=== PATIENT | female | born 1940 | race Caucasian/White ===

== ENCOUNTER 2016-04-12 07:24 | Day surgery (SDC) | payer MEDICARE ==
[~2016-04-12] VITALS: Ht 162.6 cm; Wt 113.6 kg
[~2016-04-12 07:24] MED LIST: FURO20TA PO; HYDR-2768 PO; K-TA10TA5 PO; LEVO200T38 PO; LISI40TA PO; LOVA40TA PO; NOVO7030P2 SQ; PERC5TAB12 PO; TIMO0.5S4 EACH EYE; VITA200017 PO
[2016-04-12 07:47] VITALS: BP 142/73; PULSE 63; RESP 20; TEMP 98.1; O2SAT 94
[2016-04-12] MEDS ORDERED: SODIUM CHLOR 0.9% 1000 ML INJ 1,000 ML IV SCH (08:15)
[2016-04-12] MEDS ORDERED: WARF-18 PO (08:48)
[2016-04-12] MEDS ORDERED: NOVO7030P2 SQ (08:48)
[2016-04-12] MEDS ORDERED: ZYRT10CA PO (08:48)
[2016-04-12] MEDS ORDERED: LISI40TA PO (08:48)
[2016-04-12] MEDS ORDERED: VITA10002 PO (08:48)
[2016-04-12] MEDS ORDERED: TRAM50TA PO (08:48)
[2016-04-12] MEDS ORDERED: IMODTAB (08:48)
[2016-04-12] MEDS ORDERED: LOVA40TA PO (08:48)
[2016-04-12] MEDS ORDERED: FURO1TAB62 PO (08:48)
[2016-04-12] MEDS ORDERED: LEVO200T4 PO (08:48)
[2016-04-12] MEDS ORDERED: GLIM1TAB PO (08:48)
[2016-04-12] MEDS ORDERED: AMLO5TAB2 PO (08:48)
[2016-04-12] MEDS ORDERED: ERGO1CAP10 PO (08:48)
[2016-04-12 08:52] LABS: BASOPHIL % 0.5 % (0.0-2.0); EOSINOPHIL # 0.2 TH/MM3 (0-0.4); EOSINOPHIL % 2.4 % (0.0-4.0); HEMATOCRIT 39.3 % (35.0-46.0); LYMPH % 7.5 % (9.0-44.0); LYMPHOCYTE # 0.5 TH/MM3 (1.0-4.8); MEAN CELL VOLUME 93.5 FL (80.0-100.0); MEAN CORPUSCULAR HGB CONC 33.2 % (32.0-36.0); MONO % 8.4 % (0.0-8.0); NEUT % 81.2 % (16.0-70.0); PLATELET COUNT 61 TH/MM3 (150-450); RED BLOOD COUNT 4.21 MIL/MM3 (4.00-5.30); WHITE BLOOD COUNT 6.2 TH/MM3 (4.0-11.0)
[2016-04-12 08:55] LABS: HEMO FLAGS AUTO DIFF
[2016-04-12] MEDS ORDERED: LIDOCAINE 1%/EPINEPHrine 1:100,000 SOLN 20 ML VIAL ONE (09:28)
[2016-04-12 09:39] LABS: PLATELET ESTIMATE SMEAR LOW (NORMAL); PLATELET MORPHOLOGY NORMAL (NORMAL); SCAN/DIFF AUTO DIFF CONFIRMED
[2016-04-12] MEDS ORDERED: fentaNYL CITRATE 250 MCG/5 ML AMP ONE (10:10)
[2016-04-12] MEDS ORDERED: MIDAZOLAM HCL 5 MG/5 ML VIAL ONE (10:10)
[2016-04-12 11:00] VITALS: BP 123/66; PULSE 75; RESP 16; TEMP 96.9; O2SAT 93
[2016-04-12 11:15] VITALS: BP 118/41; PULSE 62; RESP 16
[2016-04-12 11:30] VITALS: BP 91/48; PULSE 63; RESP 16; O2SAT 95
[2016-04-12 11:49] LABS: BONE MARROW PROCESSING COMPLETE; IRON STAIN DONE; JENNER GIEMSA STAIN DONE
--- NOTE | 2016-04-12 12:21 | RADRPT ---
EXAM DATE/TIME: 04/12/2016 10:19 [facility] COMPARISON: No previous studies available for comparison. INDICATIONS : Thrombocytopenia. SEDATION TIME: 30 minutes BIOPSY SITE: Right iliac MEDICATION(S): 1.) 2 mg midazolam (Versed) IV 2.) 100 mcg fentanyl (Sublimaze) IV DEVICE(S): 1.) 11 gauge Bone marrow biopsy needle MEDICAL HISTORY : Thrombocytopenia, endometrial cancer SURGICAL HISTORY : None. ENCOUNTER: Initial ACUITY: 1 day PAIN SCORE: 0/10 LOCATION: Right pelvis A total of one core specimen(s) were obtained and sent to the laboratory for pathologic evaluation. PROCEDURE: 1. CT guided bone marrow biopsy. 2. Conscious sedation with continuous EKG and oximetry monitoring. Prior to the procedure informed consent was obtained. Any appropriate prior imaging studies were rev iewed. The site was prepped in a sterile fashion. Full sterile technique was used, including cap, mask, jyotsna rile gloves and gown and a large sterile sheet. Hand hygiene and 2% chlorhexidine and/or betadine/al cohol prep was utilized per protocol for cutaneous antisepsis. The skin and subcutaneous tissues wer e infiltrated with local anesthetic solution. With CT guidance the previously identified target was localized. Biopsy was performed using the presc ribed needle as above. Following biopsy marrow aspiration was performed with repeat puncture. Adequa te hemostasis was obtained with compression at the puncture site. Follow-up CT scan reveals no hemorrhage. Conscious sedation was performed with the prescribed dosages and duration as above. The patient margret ated the procedure well and there were no complications. EKG and oximetry remained stable throughout the procedure. The patient was sent to Radiology Outpatient Unit in stable condition. CONCLUSION: 1. Uncomplicated CT guided bone marrow aspirate. 2. Uncomplicated CT guided bone marrow biopsy. Jj Welsh MD FACR on April 12, 2016 at 12:19 Board Certified Radiologist. This report was verified electronically.
[2016-04-12 12:32] VITALS: BP 124/43; PULSE 63; RESP 18; O2SAT 95
[2016-04-12 13:00] VITALS: BP 130/58; PULSE 63; RESP 16; O2SAT 97
== END 2016-04-12 13:15 | disposition home or self-care (01) ==
LOC: HRAD 07:24 → HRIP 07:25 → EDSTATUS 08:00 → HRAD 13:15
PROVIDERS: ATTEND Internal Medicine
DX: D69.6 Thrombocytopenia, unspecified (principal); D72.810 Lymphocytopenia; C54.1 Malignant neoplasm of endometrium
CPT/HCPCS: 38221; 77012; 85025; 85097; 88305; 88311; 88313; 99152; 99153; C1830; G0364; J2250; J3010

== ENCOUNTER 2017-07-12 18:11 | Emergency (ER) | payer MEDICARE ==
[~2017-07-12 18:11] MED LIST changes: +AMLO5TAB2 PO; +ERGO1CAP10 PO; +FURO1TAB62 PO; +GLIM1TAB PO; +IMODTAB; +LEVO200T4 PO; +TRAM50TA PO; +VITA10002 PO; -VITA200017 PO; +WARF-18 PO; +ZYRT10CA PO
[2017-07-12 18:13] VITALS: BP 176/75; PULSE 85; RESP 18; TEMP 98.4; O2SAT 94
--- NOTE | 2017-07-12 18:39 | PD ---
HPI Chief Complaint: Fall Time Seen by Provider: 18:26 Travel History International Travel<30 days: No Contact w/Intl Traveler<30days: No Traveled to known affect area: No History of Present Illness HPI This patient complains of right arm pain. She tripped and fell 1 hour ago and landed on her right arm. She is midhumerus pain and right elbow pain. No presyncopal symptoms. She describes a mechanical fall. She did not have any head injury. No torso or leg pain. Symptom severity is moderate. It is worse with arm movement. No alleviating factors. PFSH Past Medical History Cancer: Yes (Ovarian) Cardiovascular Problems: No Diabetes: Yes Endocrine: Yes (DM, Thyroid) Genitourinary: Yes (stress incontinence) Hepatitis: No Hiatal Hernia: No Immune Disorder: No Musculoskeletal: No Neurologic: No Psychiatric: No Reproductive: No Respiratory: No Thyroid Disease: Yes Past Surgical History Abdominal Surgery: Yes (Hysterectomy, 3 C-sections, tubaligation) AICD: No Cardiac Surgery: No Ear Surgery: No Endocrine Surgery: No Eye Surgery: Yes (L catarac) Genitourinary Surgery: No Gynecologic Surgery: Yes (Hysterectomy, tubaligation, 3 ) Joint Replacement: No Oral Surgery: Yes (tooth extractions) Pacemaker: No Thoracic Surgery: No Social History Alcohol Use: No Tobacco Use: No Substance Use: No Allergies-Medications (Allergen,Severity, Reaction): Coded Allergies: No Known Allergies (Unverified , 03/17/13) Reported Meds & Prescriptions Reported Meds & Active Scripts Active Reported Amlodipine (Amlodipine Besylate) 5 Mg Tab 5 Mg PO DAILY Warfarin 2.5 Mg Tab 2.5 Mg PO DAILY Vitamin B-12 (Cyanocobalamin) 1,000 Mcg Tab 1,000 Mcg PO DAILY Novolin 70-30 Inj (Insulin Human Isoph/Insulin Regular) 1,000 Unit/10 Ml Vial 58 Units SQ BID Lovastatin 40 Mg Tab 40 Mg PO DAILY Lisinopril 40 Mg Tab 40 Mg PO DAILY Levothyroxine (Levothyroxine Sodium) 200 Mcg Tab 200 Mcg PO DAILY Glimepiride 1 Mg Tab 1 Mg PO DAILY Take with breakfast or first main meal Lasix (Furosemide) 20 Mg Tab 20 Mg PO DAILY Review of Systems General / Constitutional: No: Fever Eyes: No: Visual changes HENT: No: Headaches Cardiovascular: Positive: Edema, No: Chest Pain or Discomfort Respiratory: No: Shortness of Breath Gastrointestinal: No: Abdominal Pain Genitourinary: No: Dysuria Musculoskeletal: Positive: Limited ROM, Edema, Pain Skin: No Rash Neurologic: No: Weakness Psychiatric: No: Depression Endocrine: No: Polydipsia Hematologic/Lymphatic: No: Easy Bruising Physical Exam Narrative GENERAL: Well-nourished, well-developed patient with right arm pain SKIN: Focused skin assessment reveals no rash and nodules. Skin is Warm and dry. HEAD: Atraumatic. Normocephalic. EYES: Pupils equal and round. No scleral icterus. No injection or drainage. ENT: No nasal bleeding or discharge. Mucous membranes pink and moist. NECK: Trachea midline. No JVD. CARDIOVASCULAR: Regular rate and rhythm. No murmur appreciated. RESPIRATORY: No accessory muscle use. Clear to auscultation. Breath sounds equal bilaterally. GASTROINTESTINAL: Abdomen soft, non-tender, nondistended. Hepatic and splenic margins not palpable. MUSCULOSKELETAL: No obvious deformities. No clubbing. No cyanosis. Significant symmetric leg edema with skin that is thickened and hyperpigmented. Has some mid humerus tenderness and right elbow tenderness without deformity or effusion NEUROLOGICAL: Awake and alert. No obvious cranial nerve deficits. Motor grossly within normal limits. Normal speech. PSYCHIATRIC: Appropriate mood and affect; insight and judgment normal. Data Data Last Documented VS Vital Signs Date Time Temp Pulse Resp B/P (MAP) Pulse Ox O2 Delivery O2 Flow Rate FiO2 07/12/17 18:13 98.4 85 18 176/75 (108) 94 Orders Orders Humerus (Min 2vws) (07/12/17 ) Elbow, Limited (Ap&Lat) (07/12/17 ) Oxycodone-Acetamin 5-325 Mg (Percocet (07/12/17 20:00) MDM Medical Decision Making Medical Screen Exam Complete: Yes Emergency Medical Condition: Yes Medical Record Reviewed: Yes Differential Diagnosis Humerus fracture, elbow fracture, elbow dislocation Narrative Course I have reviewed the patient's electronic medical record. I reviewed her right humerus x-rays which show a proximal humerus fracture I reviewed her right elbow x-rays which are normal She came with a sling. I wrote her some pain medication and gave her some now She is to follow-up with her [facility] orthopedist Ice it down tonight Diagnosis Primary Impression: Right humeral fracture Qualified Codes: S42.254A - Nondisplaced fracture of greater tuberosity of right humerus, initial encounter for closed fracture Additional Instructions: Follow-up with orthopedist Apply ice Wear sling The patient was warned about potential sedation for the medications they will receive on prescription. Med/Other Pt SpecificInfo: Prescription(s) given Scripts Oxycodone-Acetaminophen (Percocet) 5-325 mg Tab 2 TAB PO Q6H Y for PAIN, #12 TAB 0 Refills Prov: John Farrell MD 07/12/17 Disposition: DISCHARGE HOME Condition: Stable John Farrell MD July 12, 2017 18:39
--- NOTE | 2017-07-12 19:55 | RADRPT ---
EXAM DATE/TIME: 07/12/2017 18:48 [facility] COMPARISON: No previous studies available for comparison. INDICATIONS : Fall this afternoon. MEDICAL HISTORY : Thrombocytopenia, endometrial cancer SURGICAL HISTORY : None. ENCOUNTER: Subsequent ACUITY: 1 day PAIN SCORE: 8/10 LOCATION: Right Elbow FINDINGS: Two view examination of the right elbow demonstrates no soft tissue swelling, joint effusion, fractur e or dislocation. Bony mineralization is normal. CONCLUSION: 1. No acute findings. Michael Bo MD on July 12, 2017 at 19:49 Board Certified Radiologist. This report was verified electronically.
--- NOTE | 2017-07-12 19:57 | RADRPT ---
EXAM DATE/TIME: 07/12/2017 18:52 [facility] COMPARISON: No previous studies available for comparison. INDICATIONS : Fall this afternoon. MEDICAL HISTORY : Thrombocytopenia, endometrial cancer SURGICAL HISTORY : ENCOUNTER: Initial ACUITY: 1 day PAIN SCORE: 8/10 LOCATION: Right Humerus FINDINGS: Two view examination of the right humerus demonstrates a comminuted fracture of the proximal humerus involving the greater tuberosity. No dislocation. No other fractures seen. CONCLUSION: 1. Comminuted fracture proximal humerus involving the humeral head articular surface superiorly and e xtending through the greater tuberosity and humeral neck. Michael Bo MD on July 12, 2017 at 19:53 Board Certified Radiologist. This report was verified electronically.
[2017-07-12] MEDS ORDERED: oxyCODONE/ACETAMINOPHEN 5 MG/325 MG TAB PO ONE (20:00)
[2017-07-12] MEDS ORDERED: PERC5TAB12 PO (20:15)
== END 2017-07-12 20:37 | disposition home or self-care (01) ==
LOC: NEPD 18:11
DX: S42.254A Nondisplaced fracture of greater tuberosity of right humerus, initial encounter for closed fracture (principal); E07.9 Disorder of thyroid, unspecified; E11.9 Type 2 diabetes mellitus without complications; W01.0XXA Fall on same level from slipping, tripping and stumbling without subsequent striking against object, initial encounter; Z79.4 Long term (current) use of insulin
CPT/HCPCS: 73060; 73070; 99283